=== PATIENT | female | born 1965 | race Caucasian/White ===

== ENCOUNTER 2016-07-06 13:02 | Emergency (ER) | payer OTHER ==
[~2016-07-06] VITALS: Ht 157.5 cm; Wt 77.1 kg
[2016-07-06] MEDS ORDERED: COCAINE 4% SOLUTION TP ONE (13:15)
[2016-07-06 13:45] LABS: BASOPHILS # (AUTO) 0.1 K/uL (0.0-0.2); BASOPHILS % (AUTO) 0.9 % (0.0-2.0); EOSINOPHILS # (AUTO) 0.2 K/uL (0.0-0.4); EOSINOPHILS % (AUTO) 2.1 % (0.0-4.0); HEMATOCRIT 37.7 % (36-48); LYMPHOCYTES # (AUTO) 2.6 K/uL (1.0-5.5); LYMPHOCYTES % (AUTO) 29.4 % (20.5-51.5); MEAN CORPUSCULAR HEMOGLOBIN 31 pg (27-31); MEAN CORPUSCULAR HGB CONC 34 % (32-36); MEAN CORPUSCULAR VOLUME 90 fL (79.0-98.0); MONOCYTES # (AUTO) 0.4 K/uL (0.0-1.0); MONOCYTES % (AUTO) 4.7 % (1.7-9.3); NEUTROPHILS # (AUTO) 5.6 K/uL (1.8-7.7); NEUTROPHILS % (AUTO) 62.9 % (40.0-70.0); PLATELET COUNT (AUTO) 262 K/uL (130-430); RED BLOOD CELL COUNT(AUTO) 4.21 MIL/uL (4.2-6.2); RED CELL DISTRIBUTION WIDTH 12.4 % (9.0-15.0); WHITE BLOOD COUNT (AUTO) 8.9 K/uL (4.8-10.8)
[2016-07-06 13:59] LABS: CREATININE 0.77 mg/dL (0.55-1.30); INR 0.9 (0.8-1.2); POTASSIUM 3.7 mmol/L (3.5-5.1); PROTHROMBIN TIME 10.2 SECS (9.5-12.5)
[2016-07-06] MEDS ORDERED: ACETAMINOPHEN 325 MG TABLET PO ONE (14:00)
[2016-07-06 14:04] LABS: ALBUMIN 3.9 g/dL (3.4-4.8); TOTAL BILIRUBIN 0.4 mg/dL (0.0-1.0); TOTAL PROTEIN, SERUM 7.5 g/dL (6.4-8.3)
[2016-07-06 14:30] VITALS: BP_SYST 139
== END 2016-07-06 14:30 | disposition home or self-care (01) ==
LOC: SED 13:02
DX: R04.0 Epistaxis (principal); Z88.0 Allergy status to penicillin
CPT/HCPCS: 36415; 80053; 85025; 85610-TC; 85730-TC; 99284